=== PATIENT | female | born 1965 | race Caucasian/White ===

== ENCOUNTER 2017-03-09 13:11 | Emergency (ER) | payer OTHER ==
[~2017-03-09] VITALS: Ht 160 cm; Wt 81.5 kg
[~2017-03-09 13:11] MED LIST: DICLOFENAC SODI75 MG PO; GLUCOSAMINE CH PO; NIACIN500 M1 PO; OMEPRAZOLE40 M1 PO; ROPINIROLE HCL0.5 MG PO; SERTRALINE HCL50 MG PO
[2017-03-09 13:53] VITALS: BP 142/94
== END 2017-03-09 14:20 | disposition home or self-care (01) ==
LOC: EME 13:11
DX: R51 Headache (principal); J06.9 Acute upper respiratory infection, unspecified; R73.03 Prediabetes; Z88.8 Allergy status to other drugs, medicaments and biological substances
CPT/HCPCS: 82948; 99281; 99283